=== PATIENT | female | born 1970 | race Caucasian/White ===

== ENCOUNTER 2019-10-06 00:06 | Emergency (ER) | payer OTHER ==
[2019-10-06 00:25] VITALS: TEMP 98; BMI 29.2
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
[2019-10-06] MEDS ORDERED: ALPRAZolam 1 MG TABLET PO PRN (01:56)
[2019-10-06] MEDS ORDERED: ALPRAZolam 1 MG TABLET ONE (02:04)
[2019-10-06 02:40] VITALS: BP 124/57; PULSE 80
--- NOTE | 2019-10-06 13:55 | EKG ---
Test Reason : Blood Pressure : / mmHG Vent. Rate : 069 BPM Atrial Rate : 069 BPM P-R Int : 152 ms QRS Dur : 090 ms QT Int : 432 ms P-R-T Axes : 047 061 051 degrees QTc Int : 462 ms NORMAL SINUS RHYTHM NORMAL ECG WHEN COMPARED WITH ECG OF 02-AUG-2015 03:36, NONSPECIFIC T WAVE ABNORMALITY NOW EVIDENT IN ANTERIOR LEADS Confirmed by JESUS SOLANO MD ([id number]) on 10/06/2019 1:54:32 PM Referred By: Confirmed By:JESUS SOLANO MD
== END 2019-10-06 02:43 | disposition home or self-care (01) ==
LOC: JER 00:06
DX: F41.9 Anxiety disorder, unspecified (principal); Z04.71 Encounter for examination and observation following alleged adult physical abuse; Y07.01 Husband, perpetrator of maltreatment and neglect; I10 Essential (primary) hypertension; F32.9 Major depressive disorder, single episode, unspecified; Z88.0 Allergy status to penicillin
CPT/HCPCS: 93005; 93010; 99284-25

== ENCOUNTER 2022-12-18 02:39 | Emergency (ER) | payer OTHER ==
[2022-12-18 03:04] VITALS: BMI 26.5
[2022-12-18 04:13] LABS: INR 0.95 (0.83-1.09); PROTHROMBIN TIME (PATIENT) 10.9 SEC (9.7-13.0)
[2022-12-18 04:15] LABS: ACTIVATED PTT 30.5 SECONDS (25.2-36.5)
[2022-12-18 04:16] LABS: BASO % 0.8 % (0-2.0); EOS % 1.9 % (0-4.5); HEMATOCRIT 43.8 % (32.4-45.2); LYMPH % 24.4 % (8-40); MCH 31.6 pg (25.7-33.7); MCHC 34.3 g/dl (32.0-36.0); MEAN CELL VOLUME 92.1 fl (80-96); MEAN PLT VOLUME 8.6 fl (7.5-11.1); MONO % 8.7 % (3.8-10.2); NEUT % 64.2 % (42.8-82.8); PLATELET COUNT 245 10^3/uL (134-434); RBC 4.76 M/mm3 (3.60-5.2); RDW 12.8 % (11.6-15.6); WHITE BLOOD COUNT 7.5 K/mm3 (4.0-10.0)
[2022-12-18 04:36] LABS: CALCIUM 9.4 mg/dL (8.5-10.1)
[2022-12-18 04:37] LABS: BLOOD UREA NITROGEN 13.4 mg/dL (7-18)
[2022-12-18 04:40] LABS: CREATININE 0.7 mg/dL (0.55-1.3)
[2022-12-18 04:41] LABS: BILIRUBIN,TOTAL 0.4 mg/dL (0.2-1); TOT PROT 7.3 g/dl (6.4-8.2)
[2022-12-18 04:47] LABS: THROAT:GRP A STREP NOT DETECTED (NOTDETECTED)
[2022-12-18] MEDS ORDERED: FAMOTIDINE 20 MG TABLET PO ONE (05:06)
[2022-12-18] MEDS ORDERED: MAG HYDROX/AL HYDROX/SIMETH 30 ML UNIT-DOSE CUP PO ONE (05:06)
[2022-12-18 08:09] VITALS: BP 167/93; PULSE 63; RESP 16; TEMP 97.6
== END 2022-12-18 08:10 | disposition home or self-care (01) ==
LOC: JER 02:39
DX: R07.89 Other chest pain (principal); R07.0 Pain in throat
CPT/HCPCS: 0241U-QW; 36415; 71046-TC-FY; 80053; 83690; 84484; 85025; 85610; 85730; 87651; 93005; 93010; 99285-25

== ENCOUNTER 2023-02-24 21:15 | Emergency (ER) | payer OTHER ==
[2023-02-24 21:34] VITALS: BMI 28.5
[2023-02-24] MEDS ORDERED: BENZOCAINE/MENTH/CETYLPYRD CL 1 EACH LOZENGE MM ONE ×2 (22:16→22:29)
[2023-02-24] MEDS ORDERED: METOPROLOL TARTRATE 25 MG TABLET (FP) PO ONE (22:21)
[2023-02-24] MEDS ORDERED: METOPROLOL TARTRATE 25 MG TABLET (FP) ONE (22:31)
[2023-02-25 01:18] VITALS: BP 172/74; PULSE 80; RESP 16; TEMP 98.4
== END 2023-02-25 01:59 | disposition home or self-care (01) ==
LOC: JER 21:15
DX: R42 Dizziness and giddiness (principal); I10 Essential (primary) hypertension; J02.9 Acute pharyngitis, unspecified; Z20.822 Contact with and (suspected) exposure to COVID-19
CPT/HCPCS: 0241U-QW; 71046-TC-FY; 87070; 87651; 93005; 93010; 99285-25

== ENCOUNTER 2023-03-04 02:40 | Observation (INO) | payer OTHER ==
[2023-03-04 02:56] VITALS: BMI 27.4
[2023-03-04] MEDS ORDERED: LORazepam 2 MG/ML SDV VIAL IVPUSH ONE (03:48)
[2023-03-04 03:49] LABS: BASO % 0.7 % (0-2.0); EOS % 0.8 % (0-4.5); HEMATOCRIT 39.1 % (32.4-45.2); HEMOGLOBIN 14.2 GM/dL (10.7-15.3); LYMPH % 17.2 % (8-40); MCH 32.5 pg (25.7-33.7); MCHC 36.4 g/dl (32.0-36.0); MEAN CELL VOLUME 89.3 fl (80-96); MEAN PLT VOLUME 8.3 fl (7.5-11.1); MONO % 10.3 % (3.8-10.2); PLATELET COUNT 256 10^3/uL (134-434); RBC 4.38 M/mm3 (3.60-5.2); RDW 13.5 % (11.6-15.6); WHITE BLOOD COUNT 8.1 K/mm3 (4.0-10.0)
[2023-03-04 03:58] LABS: INR 0.97 (0.83-1.09); PROTHROMBIN TIME (PATIENT) 11.3 SEC (9.7-13.0)
[2023-03-04 04:11] LABS: ALBUMIN 3.9 g/dl (3.4-5.0); BLOOD UREA NITROGEN 14.3 mg/dL (7-18); CALCIUM 9.3 mg/dL (8.5-10.1)
[2023-03-04 04:14] LABS: CREATININE 0.6 mg/dL (0.55-1.3)
[2023-03-04 04:16] LABS: BILIRUBIN,TOTAL 0.5 mg/dL (0.2-1); TOT PROT 7.3 g/dl (6.4-8.2)
[2023-03-04 07:32] LABS: CALCIUM 9.1 mg/dL (8.5-10.1)
[2023-03-04 07:33] LABS: BLOOD UREA NITROGEN 13.9 mg/dL (7-18)
[2023-03-04 07:36] LABS: CREATININE 0.6 mg/dL (0.55-1.3)
[2023-03-04] MEDS ORDERED: METOPROLOL TARTRATE 25 MG TABLET (FP) PO SCH (11:45)
[2023-03-04] MEDS ORDERED: VENLAFAXINE HCL 75 MG TABLET ONE (13:38)
[2023-03-04] MEDS ORDERED: METOPROLOL TARTRATE 25 MG TABLET (FP) ONE (13:38)
[2023-03-04] MEDS ORDERED: HYDROCHLOROTHIAZIDE 25 MG TABLET (FP) ONE (13:39)
[2023-03-04] MEDS ORDERED: LOSARTAN POTASSIUM 50 MG TABLET ONE (13:39)
[2023-03-04] MEDS: HYDROCHLOROTHIAZIDE 12.5 MG CAPSULE (FP) PO SCH (13:47)
[2023-03-04] MEDS: VENLAFAXINE HCL 37.5 MG E.R. CAPSULE PO SCH (13:47)
[2023-03-04] MEDS: LOSARTAN POTASSIUM 50 MG TABLET PO SCH (13:47)
[2023-03-04 17:32] LABS: N-TERMINAL BNP 160.8 pg/ml (5-125)
[2023-03-04 21:57] VITALS: RESP 18
[2023-03-04] MEDS ORDERED: MELATONIN 5 MG TABLETS PO ONE (23:30)
[2023-03-05 08:27] LABS: ALBUMIN 3.6 g/dl (3.4-5.0); CALCIUM 9.1 mg/dL (8.5-10.1)
[2023-03-05 08:30] LABS: CREATININE 0.7 mg/dL (0.55-1.3)
[2023-03-05 08:32] LABS: BILIRUBIN,TOTAL 0.7 mg/dL (0.2-1); TOT PROT 6.8 g/dl (6.4-8.2)
[2023-03-05 08:39] LABS: BASO % 1.3 % (0-2.0); EOS % 2.5 % (0-4.5); HEMATOCRIT 40.1 % (32.4-45.2); HEMOGLOBIN 14.3 GM/dL (10.7-15.3); LYMPH % 30.3 % (8-40); MCH 32.4 pg (25.7-33.7); MCHC 35.7 g/dl (32.0-36.0); MEAN CELL VOLUME 90.7 fl (80-96); MEAN PLT VOLUME 8.5 fl (7.5-11.1); MONO % 11.8 % (3.8-10.2); NEUT % 54.1 % (42.8-82.8); PLATELET COUNT 240 10^3/uL (134-434); RBC 4.42 M/mm3 (3.60-5.2); RDW 13.3 % (11.6-15.6); WHITE BLOOD COUNT 6.3 K/mm3 (4.0-10.0)
[2023-03-05] MEDS ORDERED: ENOXAPARIN NA (PORCINE) 40 MG/0.4 ML DISP.SYRIN SQ SCH (10:00)
[2023-03-05] MEDS ORDERED: VENLAFAXINE HCL 75 MG TABLET PO ONE (11:30)
[2023-03-05] MEDS: LOSARTAN POTASSIUM 50 MG TABLET PO SCH (14:23)
[2023-03-05] MEDS: VENLAFAXINE HCL 37.5 MG E.R. CAPSULE PO SCH (14:24)
[2023-03-05] MEDS: HYDROCHLOROTHIAZIDE 12.5 MG CAPSULE (FP) PO SCH (14:24)
[2023-03-05 18:30] VITALS: BP 147/71; PULSE 84; TEMP 98.4
[2023-03-06] MEDS ORDERED: VENLAFAXINE HCL 75 MG E.R. CAPSULES PO SCH (08:00)
[2023-03-06] MEDS ORDERED: VENLAFAXINE HCL 75 MG TABLET PO SCH ×2 (10:00)
== END 2023-03-05 18:31 | disposition home or self-care (01) ==
LOC: JER 02:40 → JERBED 06:03 → UNDOADMOB 06:03 → OBSVTOIN 11:35 → INTOOBSV 11:35 → J4S 22:58 → JERBED 22:58 → J4S 03-05 10:22 → JERBED 03-05 10:22
PROVIDERS: ADMIT Internal Medicine; ATTEND Internal Medicine
PROC: 3E023GC Introduction of Other Therapeutic Substance into Muscle, Percutaneous Approach (ICD-10-PCS; principal; 2023-03-05)
PROC: 3E033GC Introduction of Other Therapeutic Substance into Peripheral Vein, Percutaneous Approach (ICD-10-PCS; 2023-03-05)
DX: F41.9 Anxiety disorder, unspecified (principal); I10 Essential (primary) hypertension; R00.2 Palpitations; F41.0 Panic disorder [episodic paroxysmal anxiety]; R07.9 Chest pain, unspecified; Z88.0 Allergy status to penicillin
CPT/HCPCS: 0241U-QW; 36415; 71046-TC-FY; 78452-TC; 80048; 80053; 80061; 83036; 83880; 84443; 84484; 84703; 85025; 85610; 85730; 93005; 93010; 93017; 93306-TC; 96372; 96374; 99285-25; A9502; G0378

== ENCOUNTER 2023-03-06 14:28 | Emergency (ER) | payer OTHER ==
[2023-03-06 14:39] VITALS: RESP 18; TEMP 97; BMI 27.8
[2023-03-06] MEDS ORDERED: ALPRAZolam 1 MG TABLET PO ONE (17:10)
[2023-03-06] MEDS ORDERED: ALPRAZolam 1 MG TABLET ONE (17:22)
[2023-03-06] MEDS ORDERED: METOPROLOL TARTRATE 25 MG TABLET (FP) PO ONE (18:43)
[2023-03-06 18:52] VITALS: PULSE 80
[2023-03-06] MEDS ORDERED: METOPROLOL TARTRATE 25 MG TABLET (FP) ONE (18:52)
[2023-03-06 20:14] VITALS: BP 134/74
== END 2023-03-06 20:35 | disposition home or self-care (01) ==
LOC: JER 14:28
DX: J02.9 Acute pharyngitis, unspecified (principal); I10 Essential (primary) hypertension; Z91.14 Patient's other noncompliance with medication regimen
CPT/HCPCS: 99283-25

== ENCOUNTER 2023-03-08 22:11 | Emergency (ER) | payer OTHER ==
[2023-03-08 22:17] VITALS: RESP 18; BMI 28.3
[2023-03-08] MEDS ORDERED: METOPROLOL TARTRATE 25 MG TABLET (FP) PO ONE (22:33)
[2023-03-08] MEDS ORDERED: metoPROLOL SUCCINATE 25 MG TAB.SR.24H (FP) PO ONE (23:04)
[2023-03-08 23:38] VITALS: TEMP 98.4
[2023-03-09 00:36] VITALS: BP 162/86; PULSE 66
[2023-03-09] MEDS ORDERED: ACETAMINOPHEN 325 MG TABLET (FP) PO ONE (00:50)
[2023-03-09] MEDS ORDERED: ACETAMINOPHEN 325 MG TABLET (FP) ONE (01:04)
== END 2023-03-09 01:11 | disposition home or self-care (01) ==
LOC: JER 22:11
DX: F41.9 Anxiety disorder, unspecified (principal); I10 Essential (primary) hypertension
CPT/HCPCS: 99283-25